=== PATIENT | female | born 1995 | race Caucasian/White ===

== ENCOUNTER 2018-12-15 11:10 | Emergency (ER) | payer OTHER ==
--- NOTE | 2018-12-15 11:54 | EDM.PDOC ---
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 Patient states she is 8 weeks . Patient states initial spotting was Sunday resolved and then she noticed some spotting on pad again this morning. Patient is scheduled for ultrasound exam this coming . Patient does have a history of 2 live births, as well as 2 spontaneous abortions at the 6-8 week time frame over the last 4 years. Patient was treated for recent UTI with amoxicillin and medication regimen completed on Sunday. Patient also concerned that she may have a yeast infection. She does have a history of candidiasis with . At this time. Patient denies fever, abdominal pain or cramping, chest pain, shortness of breath, lower extremity edema, large amount of vaginal bleeding, or blood in stool. Onset: Gradual Onset Date: 12/13/18 Duration: Day(s): Quality: Reports: Other (Denies abdominal pain or dysuria) Improves with: Reports: None Worsens with: Reports: None Context: Denies: Trauma Associated Symptoms: Reports: No Other Symptoms - Related Data Allergies Allergy/AdvReac Type Severity Reaction Status Date / Time No Known Allergies Allergy Verified 12/15/18 11:26 Home Meds: Home Meds Cholecalciferol (Vitamin D3) [Vitamin D] 5,000 unit PO DAILY 12/15/18 [History] [id number]/Iron Fumarate/FA/DSS [ 19 Tablet] 1 each PO DAILY 12/15/18 [ History] ED ROS GENERAL - Review of Systems Review Of Systems: ROS reveals no pertinent complaints other than HPI. Constitutional: Reports: No Symptoms HEENT: Reports: No Symptoms Respiratory: Reports: No Symptoms Cardiovascular: Reports: No Symptoms Endocrine: Reports: No Symptoms GI/Abdominal: Reports: No Symptoms, Nausea : Reports: Hematuria Musculoskeletal: Reports: No Symptoms Skin: Reports: No Symptoms Neurological: Reports: No Symptoms Psychiatric: Reports: No Symptoms Hematologic/Lymphatic: Reports: No Symptoms Immunologic: Reports: No Symptoms ED EXAM - Physical Exam Exam: See Below Exam Limited By: No Limitations General Appearance: Alert, WD/WN, No Apparent Distress Throat/Mouth: Normal Inspection, No Airway Compromise Head: Atraumatic, Normocephalic Neck: Normal Inspection Respiratory/Chest: No Respiratory Distress, Lungs Clear, Normal Breath Sounds, No Accessory Muscle Use, Chest Non-Tender Cardiovascular: Regular Rate, Rhythm, No Murmur GI/Abdominal Exam: Normal Bowel Sounds, Soft, Non-Tender, No Organomegaly, No Distention, No Abnormal Bruit, No Mass Back Exam: Normal Inspection. No: CVA Tenderness (L), CVA Tenderness (R) Extremities: Normal Inspection, No Pedal Edema Neurological: Alert, Oriented, Normal Cognition Psychiatric: Normal Affect, Normal Mood Skin Exam: Warm, Dry, Intact, Normal Color, No Rash Lymphatic: No Adenopathy Course - Vital Signs Last Recorded V/S: Last Vital Signs Temp 98 F 12/15/18 11:16 Pulse 88 12/15/18 11:16 Resp 18 12/15/18 11:16 BP 136/65 12/15/18 11:16 Pulse Ox 100 12/15/18 11:16 - Orders/Labs/Meds Orders: Active Orders 24 hr Category Date Time Status Pelvic Exam, Set Up [RC] ASDIRECTED Care 12/15/18 11:49 Ordered Labs: Laboratory Tests 12/15/18 12/15/18 Range/Units 11:30 11:30 Specimen Type . Urine Color Light yellow (YELLOW) Urine Appearance Clear (CLEAR) Urine pH 7.0 (5.0-9.0) Ur Specific [place] 1.015 (1.005-1.030) Urine Protein Negative (NEGATIVE) mg/dL Urine Glucose (UA) Negative (NEGATIVE) mg/dL Urine Ketones Negative (NEGATIVE) mg/dL Urine Occult Blood Negative (NEGATIVE) Urine Nitrite Negative (NEGATIVE) Urine Bilirubin Negative (NEGATIVE) Urine Urobilinogen 0.2 (0.2-1.0) E.U./dL Ur Leukocyte Esterase Negative (NEGATIVE) Urine HCG, Qual Positive H (NEGATIVE) - Re-Assessments/Exams Free Text/Narrative Re-Assessment/Exam: 12/15/18 12:03 Patient afebrile, vital signs stable. Patient states that she does not have any bleeding on pad or in her panties since this morning. Patient declined pelvic exam at this time. Patient does have an appointment scheduled for with DIE REPAIR MACHINIST. However, she is to contact in the morning to see if she get earlier appointment. She will return to the ER if bleeding continues. Departure - Departure Time of Disposition: 12:04 Disposition: Home, Self-Care 01 Condition: Good Clinical Impression: First trimester , Spotting affecting in first trimester - Discharge Information Instructions: First Trimester of , [id number], Vaginal Bleeding During , First Trimester, [id number] Referrals: Suly Cartwright MD [Primary Care Provider] - Forms: ED Department Discharge Additional Instructions: Follow-up as scheduled with DIE REPAIR MACHINIST. Return to emergency department sooner if symptoms continue or worsen. - My Orders Last 24 Hours: My Active Orders 12/15/18 11:49 Pelvic Exam, Set Up [RC] ASDIRECTED - Assessment/Plan Last 24 Hours: My Active Orders 12/15/18 11:49 Pelvic Exam, Set Up [RC] ASDIRECTED Assessment:: Plan: Follow-up with DIE REPAIR MACHINIST as scheduled
== END 2018-12-15 12:07 | disposition home or self-care (01) ==
LOC: KA.ED 11:10
DX: O26.851 Spotting complicating pregnancy, first trimester (principal); Z3A.08 8 weeks gestation of pregnancy
CPT/HCPCS: 81003; 81025; 99284

== ENCOUNTER 2019-03-31 02:42 | Emergency (ER) | payer OTHER, MEDICAID ==
[2019-03-31] MEDS ORDERED: Sodium Chloride 0.9% 10 ML Syringe FLUSH PRN (03:04)
[2019-03-31] MEDS ORDERED: HYDROmorphone 1 MG/ML Syringe IVPUSH ONE ×2 (03:11→03:37)
[2019-03-31] MEDS ORDERED: Ondansetron 4 MG/2 ML SDV IVPUSH ONE (03:11)
--- NOTE | 2019-03-31 03:11 | EDM.PDOC ---
ED HPI GENERAL MEDICAL PROBLEM - General Chief Complaint: Genitourinary Problem Stated Complaint: POSSIBLE KIDNEY STONE Time Seen by Provider: 03/31/19 02:50 Source of Information: Reports: Patient History Limitations: Reports: No Limitations - History of Present Illness INITIAL COMMENTS - FREE TEXT/NARRATIVE: 23 YO WF [id number] 22 weeks IUP with PMH of kidney stones x 3 who presents with right flank pain which began last evening around 7pm. Pt reports she took some tylenol and was able to fall asleep but woke around midnight with nausea/ vomiting x 1 and more severe right flank pain with radiation to right lower quadrant of abdomen. Pt denies dysuria, urinary frequency or urgency. Pt with fever/chills, no leg pain. Pt reports pain is worse with standing and walking. Onset: Today Onset Date: 03/31/19 Location: Reports: Abdomen, Back Quality: Reports: Dull Severity: Moderate Improves with: Reports: None Worsens with: Reports: Movement Associated Symptoms: Reports: Nausea/Vomiting. Denies: Chest Pain, Fever/Chills , Syncope Right Flank Pain Score (Numeric/FACES): 10 - Related Data Allergies Allergy/AdvReac Type Severity Reaction Status Date / Time No Known Allergies Allergy Verified 03/31/19 03:04 Home Meds: Home Meds Cholecalciferol (Vitamin D3) [Vitamin D] 5,000 unit PO DAILY 12/15/18 [History] [id number]/Iron Fumarate/FA/DSS [ 19 Tablet] 1 each PO DAILY 12/15/18 [ History] Past Medical History HEENT History: Reports: Impaired Vision [employer]ER History: Reports: - Past Surgical History HEENT Surgical History: Reports: Oral Surgery Social & Family History - Family History Family Medical History: Noncontributory - Caffeine Use Caffeine Use: Reports: None ED ROS GENERAL - Review of Systems Review Of Systems: See Below Constitutional: Reports: No Symptoms HEENT: Reports: No Symptoms Respiratory: Reports: No Symptoms Cardiovascular: Reports: No Symptoms Endocrine: Reports: No Symptoms GI/Abdominal: Reports: Abdominal Pain, Vomiting : Reports: Flank Pain Musculoskeletal: Reports: No Symptoms Skin: Reports: No Symptoms Neurological: Reports: No Symptoms Psychiatric: Reports: No Symptoms Hematologic/Lymphatic: Reports: No Symptoms Immunologic: Reports: No Symptoms ED EXAM, RENAL/ - Physical Exam Exam: See Below Exam Limited By: No Limitations General Appearance: Alert, WD/WN, No Apparent Distress Head: Atraumatic, Normocephalic Neck: Normal Inspection, Supple, Non-Tender, Full Range of Motion Respiratory/Chest: No Respiratory Distress, Lungs Clear, Normal Breath Sounds, No Accessory Muscle Use, Chest Non-Tender Cardiovascular: Normal Peripheral Pulses, Regular Rate, Rhythm, No Edema, No Gallop, No JVD, No Murmur, No Rub GI/Abdominal: Normal Bowel Sounds, Soft, Non-Tender, No Organomegaly, No Distention, No Abnormal Bruit, No Mass Back Exam: CVA Tenderness (R) Extremities: Normal Inspection, Normal Range of Motion, Non-Tender, Normal Capillary Refill, No Pedal Edema Neurological: Alert, Oriented, CN II-XII Intact, Normal Cognition, Normal Gait, Normal Reflexes, No Motor/Sensory Deficits Psychiatric: Normal Affect, Normal Mood Skin Exam: Warm, Dry, Intact, Normal Color, No Rash Lymphatic: No Adenopathy Course - Vital Signs Last Recorded V/S: Last Vital Signs Temp 35.8 C 03/31/19 02:43 Pulse 78 03/31/19 02:43 Resp 18 03/31/19 02:43 BP 117/67 03/31/19 02:43 Pulse Ox 98 03/31/19 02:43 - Orders/Labs/Meds Orders: Active Orders 24 hr Category Date Time Status Peripheral IV Care [RC] . DIRECTED Care 03/31/19 03:05 Active CULTURE URINE [RM] Stat Lab 03/31/19 02:50 Received Ondansetron [Zofran ODT] Med 03/31/19 04:29 Active 4 mg PO Q6H PRN Sodium Chloride 0.9% [Saline Flush] Med 03/31/19 03:04 Active 10 ml FLUSH Q8HR PRN Peripheral IV Insertion Adult [OM.PC] Routine Oth 03/31/19 03:04 Ordered Medication Orders Ondansetron HCl (Zofran Odt) 4 mg PO Q6H PRN PRN Reason: Nausea/Vomiting Last Admin: 03/31/19 04:41 Dose: 20 mg Sodium Chloride (Saline Flush) 10 ml FLUSH Q8HR PRN PRN Reason: keep vein open Labs: Laboratory Tests 12/23/19 12/23/19 12/23/19 Range/Units 02:50 02:55 02:55 WBC 19.34 H (5.00-10.00) 10^3/uL RBC 4.46 (3.80-5.50) 10^6/uL Hgb 13.0 (12.0-16.0) g/dL Hct 37.8 (37.0-47.0) % MCV 84.8 (82.0-92.0) fL MCH 29.1 (27.0-31.0) pg MCHC 34.4 (32.0-36.0) g/dL RDW 14.6 H (11.5-14.5) % Plt Count 183 (150-400) 10^3/uL MPV 11.0 H (7.4-10.4) fL Immature Gran % (Auto) 0.3 (0.0-5.0) % Neut % (Auto) 86.4 H (50.0-70.0) % Lymph % (Auto) 9.5 L (20.0-40.0) % [place] % (Auto) 3.5 (2.0-8.0) % Eos % (Auto) 0.2 L (1.0-3.0) % Baso % (Auto) 0.1 (0.0-1.0) % Immature Gran # (Auto) 0.06 (0.00-0.50) 10^3/uL Neut # (Auto) 16.72 H (2.50-7.00) 10^3/uL Lymph # (Auto) 1.83 (1.00-4.00) 10^3/uL [place] # (Auto) 0.68 (0.10-0.80) 10^3/uL Eos # (Auto) 0.03 L (0.10-0.30) 10^3/uL Baso # (Auto) 0.02 (0.00-0.10) 10^3/uL Sodium 139 (136-145) mmol/L Potassium 3.6 (3.3-5.3) mmol/L Chloride 100 (98-115) mmol/L Carbon Dioxide 23.8 (21.0-32.0) mmol/L Anion Gap 18.8 H (5-15) mmol/L BUN 13 (6-25) mg/dL Creatinine 0.77 (0.51-1.17) mg/dL Est Cr Clr Drug Dosing 94.80 mL/min Estimated GFR (MDRD) > 60 mL/min Glucose 143 H (75 - 99) mg/dL Calcium 9.1 (8.7-10.3) mg/dL Specimen Type Urinvoid Urine Color Yellow (YELLOW) Urine Appearance Slightly cloudy H (CLEAR) Urine pH 7.0 (5.0-9.0) Ur Specific [place] 1.015 (1.005-1.030) Urine Protein Negative (NEGATIVE) mg/dL Urine Glucose (UA) Negative (NEGATIVE) mg/dL Urine Ketones Negative (NEGATIVE) mg/dL Urine Occult Blood Small H (NEGATIVE) Urine Nitrite Negative (NEGATIVE) Urine Bilirubin Negative (NEGATIVE) Urine Urobilinogen 0.2 (0.2-1.0) E.U./dL Ur Leukocyte Esterase Negative (NEGATIVE) Urine RBC 10-20 H (0-5) /HPF Urine WBC 5-10 H (0-5) /HPF Ur Epithelial Cells Many H /LPF Amorphous Sediment Moderate H (0/HPF) /HPF Meds: Medications Generic Name Dose Route Start Last Admin Trade Name Jace PRN Reason Stop Dose Admin Ondansetron HCl 4 mg 03/31/19 04:29 03/31/19 04:41 Zofran Odt PO 20 mg Q6H PRN Administration Nausea/Vomiting Sodium Chloride 10 ml 03/31/19 03:04 Saline Flush FLUSH Q8HR PRN keep vein open Discontinued Medications Generic Name Dose Route Start Last Admin Trade Name Jace PRN Reason Stop Dose Admin Hydrocodone Bitart/Acetaminophen 5 tab 03/31/19 03:45 03/31/19 04:40 [place] 325-10 Mg PO 03/31/19 03:46 5 tab ONETIME ONE Administration Ceftriaxone Sodium 1 gm 03/31/19 03:33 03/31/19 03:55 Rocephin IVPUSH 03/31/19 03:34 1 gm ONETIME ONE Administration Hydromorphone HCl 0.5 mg 03/31/19 03:11 03/31/19 03:18 Dilaudid IVPUSH 03/31/19 03:12 0.5 mg ONETIME ONE Administration Hydromorphone HCl 0.5 mg 03/31/19 03:37 03/31/19 03:54 Dilaudid IVPUSH 03/31/19 03:38 0.5 mg ONETIME ONE Administration Sodium Chloride 1,000 mls @ 999 mls/hr 03/31/19 03:13 03/31/19 03:17 Normal Saline IV 03/31/19 04:13 999 mls/hr .BOLUS ONE Administration Ondansetron HCl 4 mg 03/31/19 03:11 03/31/19 03:19 Zofran IVPUSH 03/31/19 03:12 4 mg ONETIME ONE Administration Departure - Departure Time of Disposition: 03:49 Disposition: Home, Self-Care 01 Condition: Fair Clinical Impression: Leukocytosis, UTI, Urinary tract infectious disease Qualifiers: Weeks of gestation: 23 weeks Qualified Code(s): Z3A.23 - 23 weeks gestation of - Discharge Information Instructions: Leukocytosis, Urinary Tract Infection, Adult, Second Trimester of , [id number] Forms: ED Department Discharge Additional Instructions: 1. discharge home- Discussed with Dr Cartwright who agreed with antibiotics- will see in clinic today for repeat CBC and abdominal ultrasound to rule out hydronephrosis and kidney stone 2. hydrocodone 10/325 #5 every 4-6 hours for pain as needed 3. plenty of fluids 4. return to ER for worsening symptoms Sepsis Event Note - Evaluation Sepsis Screening Result: No Definite Risk - Focused Exam Vital Signs: Vital Signs Temp Pulse Resp BP Pulse Ox 03/31/19 02:43 35.8 C 78 18 117/67 98 Date Exam was Performed: 03/31/19 Time Exam was Performed: 04:51 - My Orders Last 24 Hours: My Active Orders 03/31/19 02:50 CULTURE URINE [RM] Stat 03/31/19 03:04 Sodium Chloride 0.9% [Saline Flush] 10 ml FLUSH Q8HR PRN Peripheral IV Insertion Adult [OM.PC] Routine 03/31/19 03:05 Peripheral IV Care [RC] . DIRECTED 03/31/19 04:29 Ondansetron [Zofran ODT] 4 mg PO Q6H PRN - Assessment/Plan Last 24 Hours: My Active Orders 03/31/19 02:50 CULTURE URINE [RM] Stat 03/31/19 03:04 Sodium Chloride 0.9% [Saline Flush] 10 ml FLUSH Q8HR PRN Peripheral IV Insertion Adult [OM.PC] Routine 03/31/19 03:05 Peripheral IV Care [RC] . DIRECTED 03/31/19 04:29 Ondansetron [Zofran ODT] 4 mg PO Q6H PRN Assessment:: 1. leukocytosis 2. possible UTI 3. possible kidney stone 4. second trimester Plan: 1. discharge home- Discussed with Dr Cartwright who agreed with antibiotics- will see in clinic today for repeat CBC and abdominal ultrasound to rule out hydronephrosis and kidney stone 2. hydrocodone 10/325 #5 every 4-6 hours for pain as needed 3. plenty of fluids 4. return to ER for worsening symptoms
[2019-03-31] MEDS ORDERED: Sodium Chloride 0.9% 1,000 ML IV ONE (03:13)
[2019-03-31 03:27] LABS: ANION GAP 18.8 mmol/L (5-15); CHLORIDE,CL 100 mmol/L (98-115); SODIUM,NA 139 mmol/L (136-145)
[2019-03-31] MEDS ORDERED: cefTRIAXone 1 GM Vial IVPUSH ONE (03:33)
[2019-03-31] MEDS ORDERED: Acetaminophen/HYDROcodone 325-10 MG Tab PO ONE (03:45)
[2019-03-31] MEDS ORDERED: Ondansetron 4 MG Tab.DIS PO PRN (04:29)
== END 2019-03-31 04:45 | disposition home or self-care (01) ==
LOC: KA.ED 02:42
DX: O23.42 Unspecified infection of urinary tract in pregnancy, second trimester (principal); O99.112 Other diseases of the blood and blood-forming organs and certain disorders involving the immune mechanism complicating pregnancy, second trimester; D72.829 Elevated white blood cell count, unspecified; Z98.890 Other specified postprocedural states; Z3A.23 23 weeks gestation of pregnancy
CPT/HCPCS: 80048; 81001; 85025; 87086; 87088; 87147; 96361; 96374; 96375; 96376; 99284; A9270; J0696; J1170; J2405; J7030